=== PATIENT | male | born 1965 | race Caucasian/White ===

== ENCOUNTER 2019-07-06 09:39 | Emergency (ER) | payer OTHER ==
[2019-07-06 10:43] LABS: Absolute Lymphocytes (CBC) 1.7 K/uL (0.7-4.9); Basophils % 1.1 % (0-1.3); Hematocrit 47.8 % (39.6-49.0); Lymphocytes % 37.2 % (15.3-44.8); MPV 8.2 fL (7.6-11.3); RBC Red Blood Cell Count 5.23 M/uL (4.33-5.43)
[2019-07-06] MEDS ORDERED: PROMETHAZINE INJ 25 MG/ML AMP ONE (10:45)
[2019-07-06] MEDS ORDERED: NA CHLORIDE 0.9% 1,000 ML ONE (10:46)
[2019-07-06] MEDS ORDERED: FENTANYL CITR 100 MCG/2 ML ONE (10:46)
[2019-07-06 10:59] LABS: ALT/SGPT 28 U/L (12-78); AST/SGOT 17 U/L (15-37); Alkaline Phosphatase 44 U/L (45-117); BUN Blood Urea Nitrogen 10 mg/dL (7-18); Bicarbonate 29 mmol/L (21-32); Bilirubin Direct < 0.1 mg/dL (0-0.2); Bilirubin Total 0.4 mg/dL (0.2-1.0); Glucose Level 92 mg/dL (74-106); Lipase 138 U/L (73-393); Potassium 4.1 mmol/L (3.5-5.1); Protein, Total 7.5 g/dL (6.4-8.2); Sodium Level 140 mmol/L (136-145)
[2019-07-06 11:25] LABS: Urine Blood NEGATIVE (NEG); Urine Glucose NEGATIVE (NEG); Urine Protein NEGATIVE (NEG); Urine pH 5.5 (5.0-7.0)
--- NOTE | 2019-07-06 11:46 | RAD REPORT ---
EXAM DESCRIPTION: CTAbdomen Pelvis W Contrast - 07/06/2019 11:23 am CLINICAL HISTORY: Abdominal pain. ABD PAIN COMPARISON: No comparisons TECHNIQUE: Biphasic CT imaging of the abdomen and pelvis was performed with 100 ml non-ionic IV cont rast. All CT scans are performed using dose optimization technique as appropriate and may include automated exposure control or mA/KV adjustment according to patient size. FINDINGS: The lung bases are clear. Multiple low-density liver lesions are present, several of which demonstrate characteristics of benig n hemangioma. The largest is in the posterior right lobe measuring 19 mm. No intra or extrahepatic bi liary tree dilatation. The spleen, pancreas, adrenal glands and kidneys are within normal limits. No bowel obstruction, free air, free fluid or abscess. The appendix is normal. No evidence of signi ficant lymphadenopathy. No suspicious bony findings. Small fat containing inguinal hernias. IMPRESSION: No acute intra-abdominal or pelvic finding.
--- NOTE | 2019-07-06 12:44 | EDPHYS ---
Physician Documentation [facility] Name: Juan David Tse Age: 53 yrs Sex: Male : 1965 Arrival Date: 07/06/2019 Time: 09:43 Bed 13 Private MD: GRETCHEN Physician Isidoro Zaragoza HPI: 07/06 11:14 This 53 yrs old Male presents to ER via Ambulatory with complaints of Flank snw Pain. 11:14 The patient complains of pain in the right lower quadrant. The pain does not radiate. snw Onset: The symptoms/episode began/occurred suddenly, last week, and became worse and became persistent this morning. Associated signs and symptoms: Pertinent positives: diarrhea, Pertinent negatives: fever, urinary frequency, hematuria, pain radiating to the lower extremities. Severity of pain: At its worst the pain was moderate severe. The patient has not experienced similar symptoms in the past. The patient has not recently seen a physician. Historical: - Allergies: 09:57 No Known Allergies; aa5 - Home Meds: 09:57 None [Active]; aa5 - PMHx: 09:57 None; aa5 - PSHx: 09:57 Tonsillectomy; aa5 - Immunization history:: Flu vaccine is up to date. - Coronavirus screen:: The patient has NOT traveled to [place], [place], or [place] in the past 14 days. The patient has NOT had contact with known/suspected case of Coronavirus?. - Social history:: Smoking status: Patient denies any tobacco usage or history of. - Ebola Screening: : No symptoms or risks identified at this time. ROS: 11:38 Constitutional: Negative for fever, chills, and weight loss, Eyes: Negative for injury, snw pain, redness, and discharge, ENT: Negative for injury, pain, and discharge, Neck: Negative for injury, pain, and swelling, Cardiovascular: Negative for chest pain, palpitations, and edema, Respiratory: Negative for shortness of breath, cough, wheezing, and pleuritic chest pain, Back: Negative for injury and pain, : Negative for injury, bleeding, discharge, and swelling, MS/Extremity: Negative for injury and deformity, Skin: Negative for injury, rash, and discoloration, Neuro: Negative for headache, weakness, numbness, tingling, and seizure. 11:38 Abdomen/GI: Positive for abdominal pain, diarrhea, abdominal cramps, Negative for nausea and vomiting, black/tarry stool, rectal pain, rectal bleeding. Exam: 11:13 Constitutional: This is a well developed, well nourished patient who is awake, alert, snw and in no acute distress. Head/Face: Normocephalic, atraumatic. Eyes: Pupils equal round and reactive to light, extra-ocular motions intact. Lids and lashes normal. Conjunctiva and sclera are non-icteric and not injected. Cornea within normal limits. Periorbital areas with no swelling, redness, or edema. ENT: Nares patent. No nasal discharge, no septal abnormalities noted. Tympanic membranes are normal and external auditory canals are clear. Oropharynx with no redness, swelling, or masses, exudates, or evidence of obstruction, uvula midline. Mucous membranes moist. Neck: Trachea midline, no thyromegaly or masses palpated, and no cervical lymphadenopathy. Supple, full range of motion without nuchal rigidity, or vertebral point tenderness. No Meningismus. Chest/axilla: Normal chest wall appearance and motion. Nontender with no deformity. No lesions are appreciated. Cardiovascular: Regular rate and rhythm with a normal S1 and S2. No gallops, murmurs, or rubs. Normal PMI, no JVD. No pulse deficits. Respiratory: Lungs have equal breath sounds bilaterally, clear to auscultation and percussion. No rales, rhonchi or wheezes noted. No increased work of breathing, no retractions or nasal flaring. Back: No spinal tenderness. No costovertebral tenderness. Full range of motion. Skin: Warm, dry with normal turgor. Normal color with no rashes, no lesions, and no evidence of cellulitis. MS/ Extremity: Pulses equal, no cyanosis. Neurovascular intact. Full, normal range of motion. Neuro: Awake and alert, GCS 15, oriented to person, place, time, and situation. Cranial nerves II-XII grossly intact. Motor strength 5/5 in all extremities. Sensory grossly intact. Cerebellar exam normal. Normal gait. Psych: Awake, alert, with orientation to person, place and time. Behavior, mood, and affect are within normal limits. 11:13 Abdomen/GI: Inspection: abdomen appears normal, obese Bowel sounds: normal, Palpation: mild abdominal tenderness, in the right lower quadrant, oval shaped mobile mass superior to abdominal wall palpable at right lower quad. Vital Signs: 09:57 BP 160 / 104; Pulse 76; Resp 16 S; Temp 98.3(O); Pulse Ox 98% on R/A; Weight 101.6 kg aa5 (R); Height 5 ft. 8 in. (172.72 cm) (R); Pain 0/10; 10:52 BP 145 / 94; Pulse 73; Resp 18; Pulse Ox 96% on R/A; aj1 11:30 BP 134 / 74; Pulse 62; Resp 16; Pulse Ox 100% on R/A; aj1 12:36 BP 130 / 85; Pulse 65; Resp 18; Pulse Ox 100% on R/A; aj1 09:57 Body Mass Index 34.06 (101.60 kg, 172.72 cm) aa5 MDM: 09:57 Patient medically screened. [facility] 12:44 Data reviewed: vital signs, nurses notes. Data interpreted: Pulse oximetry: on room air snw is 100 %. Interpretation: normal. Counseling: I had a detailed discussion with the patient and/or guardian regarding: the historical points, exam findings, and any diagnostic results supporting the discharge/admit diagnosis, the presence of at least one elevated blood pressure reading (>120/80) during this emergency department visit, lab results, radiology results, the need for outpatient follow up, to return to the emergency department if symptoms worsen or persist or if there are any questions or concerns that arise at home. Special discussion: Based on the patient's Hx, exam, and Dx evaluation, there is no indication for emergent surgery or inpatient Tx. It is understood by the patient/guardian that if the Sx's persist or worsen they need to return immediately for re-evaluation. Based on the history and exam findings, there is no indication for further emergent testing or inpatient evaluation. I discussed with the patient/guardian the need to see the line driver for further evaluation of the symptoms. I discussed with the patient/guardian the need to see the primary care provider for further evaluation of the symptoms. 07/06 10:06 Order name: Urine Dipstick--Ancillary (enter results); Complete Time: 11:35 eb 07/06 10:31 Order name: Basic Metabolic Panel; Complete Time: 10:57 snw 01 10:31 Order name: CBC with Diff; Complete Time: 10:44 07/06 10:31 Order name: Creatinine for Radiology; Complete Time: 10:58 07/06 10:31 Order name: Hepatic Function; Complete Time: 10:57 07/06 10:31 Order name: Lipase; Complete Time: 10:57 07/06 10:31 Order name: Labs collected and sent; Complete Time: 10:34 07/06 10:31 Order name: CT Abd/Pelvis - IV Contrast Only; Complete Time: 12:05 snw Administered Medications: 10:50 Drug: fentaNYL (PF) 25 mcg Route: IVP; Site: right antecubital; [facility] 13:15 Follow up: Response: No adverse reaction; Pain is decreased; RASS: Alert and Calm (0) [facility] 10:50 Drug: Phenergan 6.25 mg Route: IVP; Site: right antecubital; 1 13:15 Follow up: Response: No adverse reaction [facility] 10:51 Drug: NS 0.9% 1000 ml Route: IV; Rate: 1 bolus; Site: right antecubital; 1 13:15 Follow up: IV Status: Completed infusion; IV Intake: 1000ml [facility] Disposition: 07/06/19 12:43 Discharged to Home. Impression: Generalized abdominal pain, Diarrhea, unspecified, Nausea. - Condition is Stable. - Discharge Instructions: Abdominal Pain, Adult, Food Choices to Help Relieve Diarrhea, Adult, Diarrhea, Adult, Nausea, Adult, Rehydration, Adult, [place] Diet. - Prescriptions for Bentyl 20 mg Oral Tablet - take 1 tablet by ORAL route every 6 hours As needed; 20 tablet. promethazine 25 mg Oral Tablet - take 1 tablet by ORAL route every 6 hours As needed; 20 tablet. - Medication Reconciliation Form, Thank You Letter, Antibiotic Education, Prescription Opioid Use form. - Follow up: Emergency Department; When: As needed; Reason: Worsening of condition. Follow up: Private Physician; When: 1 week; Reason: Recheck today's complaints, Continuance of care, Re-evaluation by your physician. Addendum: 07/08/2019 07:06 Co-signature as Attending Physician, Isidoro Zaragoza MD I agree with the assessment and c kaur plan of care. Signatures: Dispatcher [employer] Silke Castellanos, RN RN aj1 Isidoro Zaragoza MD MD cha Therrien, Shelly, ENGAGEMENT ENGINEER-C ENGAGEMENT ENGINEER-Csnw Aim Rivas, RN RN aa5 Corrections: (The following items were deleted from the chart) 07/06 13:16 12:43 07/06/2019 12:43 Discharged to Home. Impression: Generalized abdominal pain; aj1 Diarrhea, unspecified; Nausea. Condition is Stable. Forms are Medication Reconciliation Form, Thank You Letter, Antibiotic Education, Prescription Opioid Use. Follow up: Emergency Department; When: As needed; Reason: Worsening of condition. Follow up: Private Physician; When: 1 week; Reason: Recheck today's complaints, Continuance of care, Re-evaluation by your physician. snw
--- NOTE | 2019-07-06 12:44 | ER ---
Nurse's Notes [facility] Name: Juan David Tse Age: 53 yrs Sex: Male : 1965 Arrival Date: 07/06/2019 Time: 09:43 Bed 13 Private MD: Diagnosis: Generalized abdominal pain;Diarrhea, unspecified;Nausea Presentation: 07/06 09:57 Presenting complaint: Patient states: intermittent RLQ pain that began this morning. aa5 Reports diarrhea. Denies nausea/vomiting. Pt states "I was at a meeting yesterday and there is a few of us that got sick from the food but I've had food poisoning before and this feels different". Transition of care: patient was not received from another setting of care. Onset of symptoms was July 2019. Risk Assessment: Do you want to hurt yourself or someone else? Patient reports no desire to harm self or others. Initial Sepsis Screen: Does the patient meet any 2 criteria? No. Patient's initial sepsis screen is negative. Does the patient have a suspected source of infection? No. Patient's initial sepsis screen is negative. Care prior to arrival: None. 09:57 Method Of Arrival: Ambulatory aa5 09:57 Acuity: TOSHIA 3 aa5 Historical: - Allergies: 09:57 No Known Allergies; aa5 - Home Meds: 09:57 None [Active]; aa5 - PMHx: 09:57 None; aa5 - PSHx: 09:57 Tonsillectomy; aa5 - Immunization history:: Flu vaccine is up to date. - Coronavirus screen:: The patient has NOT traveled to [place], [place], or [place] in the past 14 days. The patient has NOT had contact with known/suspected case of Coronavirus?. - Social history:: Smoking status: Patient denies any tobacco usage or history of. - Ebola Screening: : No symptoms or risks identified at this time. Screenin:52 Abuse screen: Denies threats or abuse. Denies injuries from another. Nutritional aj1 screening: No deficits noted. Tuberculosis screening: No symptoms or risk factors identified. 13:14 Fall Risk None identified. aj1 Assessment: 10:52 General: Appears in no apparent distress. uncomfortable, Behavior is calm, cooperative, aj1 appropriate for age. Pain: Complains of pain in right lower quadrant Pain does not radiate. Neuro: Level of Consciousness is awake, alert, obeys commands, Oriented to person, place, time, situation. Cardiovascular: Patient's skin is warm and dry. Respiratory: Airway is patent Respiratory effort is even, unlabored, Respiratory pattern is regular, symmetrical. GI: Abdomen is non-distended, Bowel sounds present X 4 quads. Abd is soft X 4 quads Abdomen is tender to palpation in right lower quadrant Reports lower abdominal pain, diarrhea, Patient currently denies nausea, vomiting. : No signs and/or symptoms were reported regarding the genitourinary system. EENT: No signs and/or symptoms were reported regarding the EENT system. Derm: No signs and/or symptoms reported regarding the dermatologic system. Skin is pink, warm \\T\\ dry. normal. Musculoskeletal: No signs and/or symptoms reported regarding the musculoskeletal system. Circulation, motion, and sensation intact. 11:30 Reassessment: Patient appears in no apparent distress at this time. No changes from aj1 previously documented assessment. Patient and/or family updated on plan of care and expected duration. Pain level reassessed. Patient is alert, oriented x 3, equal unlabored respirations, skin warm/dry/pink. 12:35 Reassessment: Patient appears in no apparent distress at this time. No changes from aj1 previously documented assessment. Patient and/or family updated on plan of care and expected duration. Pain level reassessed. Patient is alert, oriented x 3, equal unlabored respirations, skin warm/dry/pink. 13:13 Reassessment: Patient appears in no apparent distress at this time. No changes from aj1 previously documented assessment. Patient and/or family updated on plan of care and expected duration. Pain level reassessed. Patient is alert, oriented x 3, equal unlabored respirations, skin warm/dry/pink. Vital Signs: 09:57 BP 160 / 104; Pulse 76; Resp 16 S; Temp 98.3(O); Pulse Ox 98% on R/A; Weight 101.6 kg aa5 (R); Height 5 ft. 8 in. (172.72 cm) (R); Pain 0/10; 10:52 BP 145 / 94; Pulse 73; Resp 18; Pulse Ox 96% on R/A; aj1 11:30 BP 134 / 74; Pulse 62; Resp 16; Pulse Ox 100% on R/A; aj1 12:36 BP 130 / 85; Pulse 65; Resp 18; Pulse Ox 100% on R/A; aj1 09:57 Body Mass Index 34.06 (101.60 kg, 172.72 cm) aa5 ED Course: 09:43 Patient arrived in ED. rg4 09:47 Sophy Matson [facility]C [facility] snw 09:47 Isidoro Zaragoza MD is Attending Physician. snw 09:57 Arm band placed on. aa5 09:59 Triage completed. aa5 10:05 Urine collected: clean catch specimen, clear, Amount Voided: 50mL. ms 10:28 Silke Frederick, RN is Primary Nurse. aj1 10:38 Radiology exam delayed due to lab results not completed at this time. (BUN/Creatinine). bq 10:38 Initial lab(s) drawn, by me, sent to lab. Inserted saline lock: 20 gauge in right ms antecubital area, using aseptic technique. Blood collected. 10:52 Patient has correct armband on for positive identification. Bed in low position. Call aj1 light in reach. 10:52 No provider procedures requiring assistance completed. aj1 11:23 CT Abd/Pelvis - IV Contrast Only In Process Unspecified. EDMS 13:14 IV discontinued, intact, bleeding controlled, No redness/swelling at site. Pressure aj1 dressing applied. Administered Medications: 10:50 Drug: fentaNYL (PF) 25 mcg Route: IVP; Site: right antecubital; aj1 13:15 Follow up: Response: No adverse reaction; Pain is decreased; RASS: Alert and Calm (0) aj1 10:50 Drug: Phenergan 6.25 mg Route: IVP; Site: right antecubital; aj1 13:15 Follow up: Response: No adverse reaction aj1 10:51 Drug: NS 0.9% 1000 ml Route: IV; Rate: 1 bolus; Site: right antecubital; aj1 13:15 Follow up: IV Status: Completed infusion; IV Intake: 1000ml aj1 Intake: 13:15 IV: 1000ml; Total: 1000ml. aj1 Outcome: 12:43 Discharge ordered by . snw 13:14 Discharged to home ambulatory, with family. aj1 13:14 Condition: good 13:14 Discharge instructions given to patient, family, Instructed on discharge instructions, follow up and referral plans. medication usage, Demonstrated understanding of instructions, follow-up care, medications, Prescriptions given X 2. 13:16 Patient left the ED. aj1 Signatures: Dispatcher [employer] EDSilke Ayala, RN RN aj1 Sophy Matson, READING ASSISTANT-C READING ASSISTANT-Csnw Jenny Grissom Maria ms Calderon, Audri, RN RN aa5 Melissa Santacruz4
[2019-07-06 13:23] VITALS: TEMP 98.3
[2019-07-06 13:25] VITALS: O2SAT 100
[2019-07-06 13:27] VITALS: BP 130/85
== END 2019-07-06 13:16 | disposition home or self-care (01) ==
LOC: ER 09:39
DX: R19.7 Diarrhea, unspecified (principal); R11.0 Nausea; R10.31 Right lower quadrant pain
CPT/HCPCS: 96361; 85025; 80048; 36415; 80076; 81003; 83690; 74177; 96375; 96374; 99284; Q9967; J2550; J3010; J7030